=== PATIENT | female | born 1970 | race Two or more races ===

== ENCOUNTER → 2017-05-04 | Outpatient (CLI) | payer OTHER | LOC: CIMAGING 08:04 | PROVIDERS: ATTEND Family Medicine | DX: Z12.31 Encounter for screening mammogram for malignant neoplasm of breast (principal) | CPT/HCPCS: G0202 ==

== ENCOUNTER 2018-02-18 15:51 | Emergency (ER) | payer OTHER ==
--- NOTE | 2018-02-18 16:08 | EDPHY ---
H & P Stated Complaint: LLQ pain for 3 days with nausea. Time Seen by Provider: 02/18/18 16:08 HPI/ROS: HPI CHIEF COMPLAINT: Abdominal pain HISTORY OF PRESENT ILLNESS: Patient is a 39-year-old female, history of diverticulitis with partial colectomy, presents emergency room with left lower quadrant abdominal pain. Associated nausea but no vomiting. Denies fever. States this been present for 3 days. She denies any chest pain or shortness of breath. Pain is located in her left lower quadrant has progressively gotten worse over the past 3 days. She did see her primary care doctor who did blood work and try to order it outpatient CT however patient states her insurance company would not pre authorized the outpatient CT so she was forced come the emergency room due to ongoing pain. States normal bowel movement earlier today. No diarrhea no black stool no blood in her stool. No vomiting blood. Past Medical History: Diverticulitis Past Surgical History: Partial colectomy Social History: Denies daily use drugs alcohol tobacco. Family History: Noncontributory ROS REVIEW OF SYSTEMS: A comprehensive 10 point review of systems is otherwise negative aside from elements mentioned in the history of present illness. Exam Constitutional appears well nontoxic triage nursing summary reviewed, vital signs reviewed, awake/alert. Eyes normal conjunctivae and sclera, EOMI, PERRLA. HENT normal inspection, atraumatic, moist mucus membranes, no epistaxis, neck supple/ no meningismus, no raccoon eyes. Respiratory clear to auscultation bilaterally, normal breath sounds, no respiratory distress, no wheezing. Cardiovascular rate normal, regular rhythm, no murmur, no edema, distal pulses normal. Gastrointestinal mild tender palpation left lower quadrant no rebound, no guarding, normal bowel sounds, no distension, no pulsatile mass. Genitourinary no CVA tenderness. Musculoskeletal no midline vertebral tenderness, full range of motion, no calf swelling, no tenderness of extremities, no meningismus, good pulses, neurovascularly intact. Skin pink, warm, & dry, no rash, skin atraumatic. Neurologic awake, alert and oriented x 3, AAOx3, moves all 4 extremities equally, motor intact, sensory intact, CN II-XII intact, normal cerebellar, normal vision, normal speech. Psychiatric normal mood/affect. Heme/Lymph/Immune no lymphadenopathy. Differential diagnosis includes but is not limited to and in no particular order : Bowel obstruction, appendicitis, gallbladder disease, diverticulitis, colitis , enteritis, perforated viscus, gastritis, GERD, esophagitis, urinary tract infection, pyelonephritis, kidney stones Medical Decision Making: Plan for this patient IV establishment blood draw, CT scan abdomen pelvis with IV contrast, re-evaluate. She has declined pain medicine here. Re-evaluation: CT scan abdomen pelvis with IV contrast called to me by Dr. Tay, shows most likely a left ovarian cyst with rupture, trace free fluid in the left lower pelvis. This most likely causing her pain. No evidence of diverticulitis or colitis. No free air. Additionally there is an incidental liver lesion that needs further follow-up in characterization. CT distally shows constipation. I discussed the patient's blood work and CT results with her. I discussed the her liver lesion needs follow-up with primary care doctor. She feels comfortable going home. Most likely cause of pain is ruptured ovarian cyst. I do recommend that she takes Mag citrate for constipation. Additionally should follow up with her primary care doctor over the next month for further evaluation of the liver cyst. She understands. Return precautions discussed she understands return emergency room if develops worsening abdominal pain fever vomiting. Source: Patient - Personal History LMP (Females 10-55): 15-21 Days Ago Current Tetanus Diphtheria and Acellular Pertussis (TDAP): Yes - Medical/Surgical History Hx Asthma: No Hx Chronic Respiratory Disease: No Hx Diabetes: No Hx Cardiac Disease: No Hx Renal Disease: No Hx Cirrhosis: No Hx Alcoholism: No Hx HIV/AIDS: No Hx Splenectomy or Spleen Trauma: No Other PMH: Diverticulitis. - Social History Smoking Status: Never smoked Constitutional: Initial Vital Signs Temperature (C) 36.6 C 02/18/18 15:54 Heart Rate 94 02/18/18 15:54 Respiratory Rate 16 02/18/18 15:54 Blood Pressure 123/82 H 02/18/18 15:54 O2 Sat (%) 96 02/18/18 15:54 O2 Delivery Mode Room Air Allergies/Adverse Reactions: amoxicillin Allergy (Verified 02/18/18 15:58) Sulfa (Sulfonamide Antibiotics) Allergy (Verified 02/18/18 15:58) Home Medications: Medication Instructions Recorded Magnesium Citrate [Magnesium 300 ml PO ONCE #1 bottle 02/18/18 Citrate 300 ml (*)] Protonix 02/18/18 Xanax 02/18/18 Zyrtec 02/18/18 Medical Decision Making - Data Points Laboratory Results: Laboratory Results 02/18/18 16:25 02/18/18 16:25 02/18/18 02/18/18 02/18/18 16:25 16:25 16:25 WBC 7.09 10^3/uL 10^3/uL (3.80-9.50) RBC 5.08 10^6/uL 10^6/uL (4.18-5.33) Hgb 14.5 g/dL g/dL (12.6-16.3) Hct 42.7 % % (38.0-47.0) MCV 84.1 fL fL (81.5-99.8) MCH 28.5 pg pg (27.9-34.1) MCHC 34.0 g/dL g/dL (32.4-36.7) RDW 13.1 % % (11.5-15.2) Plt Count 346 10^3/uL 10^3/uL (150-400) MPV 9.7 fL fL (8.7-11.7) Neut % (Auto) 50.2 % % (39.3-74.2) Lymph % (Auto) 33.3 % % (15.0-45.0) Coleman % (Auto) 12.6 % % (4.5-13.0) Eos % (Auto) 3.4 % % (0.6-7.6) Baso % (Auto) 0.4 % % (0.3-1.7) Nucleat RBC Rel Count 0.0 % % (0.0-0.2) Absolute Neuts (auto) 3.56 10^3/uL 10^3/uL (1.70-6.50) Absolute Lymphs (auto) 2.36 10^3/uL 10^3/uL (1.00-3.00) Absolute Monos (auto) 0.89 10^3/uL H 10^3/uL (0.30-0.80) Absolute Eos (auto) 0.24 10^3/uL 10^3/uL (0.03-0.40) Absolute Basos (auto) 0.03 10^3/uL 10^3/uL (0.02-0.10) Absolute Nucleated RBC 0.00 10^3/uL 10^3/uL (0-0.01) Immature Gran % 0.1 % % (0.0-1.1) Immature Gran # 0.01 10^3/uL 10^3/uL (0.00-0.10) VBG Lactic Acid Sodium 141 mEq/L mEq/L (135-145) Potassium 4.1 mEq/L mEq/L (3.5-5.2) Chloride 107 mEq/L mEq/L (97-110) Carbon Dioxide 22 mEq/l mEq/l (22-31) Anion Gap 12 mEq/L mEq/L (8-16) BUN 12 mg/dL mg/dL (7-23) Creatinine 0.8 mg/dL mg/dL (0.6-1.0) Estimated GFR > 60 Glucose 92 mg/dL mg/dL (70-100) Calcium 9.6 mg/dL mg/dL (8.5-10.4) Total Bilirubin 0.5 mg/dL mg/dL (0.1-1.4) Conjugated Bilirubin 0.3 mg/dL mg/dL (0.0-0.5) Unconjugated Bilirubin 0.2 mg/dL mg/dL (0.0-1.1) AST 23 IU/L IU/L (14-46) ALT 25 IU/L IU/L (9-52) Alkaline Phosphatase 62 IU/L IU/L (38-126) Total Protein 7.8 g/dL g/dL (6.3-8.2) Albumin 4.5 g/dL g/dL (3.5-5.0) Lipase 155 IU/L IU/L (23-300) Beta HCG, Qual NEGATIVE Urine Color Urine Appearance Urine pH Ur Specific [place] Urine Protein Urine Ketones Urine Blood Urine Nitrate Urine Bilirubin Urine Urobilinogen Ur Leukocyte Esterase Urine RBC Urine WBC Ur Epithelial Cells Urine Bacteria Urine Mucus Urine Glucose 02/18/18 02/18/18 16:25 16:00 WBC RBC Hgb Hct MCV MCH MCHC RDW Plt Count MPV Neut % (Auto) Lymph % (Auto) Coleman % (Auto) Eos % (Auto) Baso % (Auto) Nucleat RBC Rel Count Absolute Neuts (auto) Absolute Lymphs (auto) Absolute Monos (auto) Absolute Eos (auto) Absolute Basos (auto) Absolute Nucleated RBC Immature Gran % Immature Gran # VBG Lactic Acid 1.1 mmol/L mmol/L (0.7-2.1) Sodium Potassium Chloride Carbon Dioxide Anion Gap BUN Creatinine Estimated GFR Glucose Calcium Total Bilirubin Conjugated Bilirubin Unconjugated Bilirubin AST ALT Alkaline Phosphatase Total Protein Albumin Lipase Beta HCG, Qual Urine Color YELLOW Urine Appearance HAZY Urine pH 5.0 (5.0-7.5) Ur Specific [place] 1.017 (1.002-1.030) Urine Protein NEGATIVE (NEGATIVE) Urine Ketones NEGATIVE (NEGATIVE) Urine Blood 2+ H (NEGATIVE) Urine Nitrate NEGATIVE (NEGATIVE) Urine Bilirubin NEGATIVE (NEGATIVE) Urine Urobilinogen NEGATIVE EU EU (0.2-1.0) Ur Leukocyte Esterase NEGATIVE (NEGATIVE) Urine RBC 1-3 /hpf /hpf (0-3) Urine WBC 3-5 /hpf H /hpf (0-3) Ur Epithelial Cells TRACE /lpf /lpf (NONE-1+) Urine Bacteria 3+ /hpf H /hpf (NONE SEEN) Urine Mucus TRACE /lpf /lpf (NONE-1+) Urine Glucose NEGATIVE (NEGATIVE) Medications Given: Discontinued Medications Sodium Chloride (Ns) 1,000 mls @ 0 mls/hr IV EDNOW ONE; Wide Open PRN Reason: Protocol Stop: 02/18/18 16:11 Last Admin: 02/18/18 16:23 Dose: 1,000 mls Departure - Departure Disposition: Home, Routine, Self-Care Clinical Impression: Abdominal pain Qualifiers: Abdominal location: unspecified location Qualified Code(s): R10.9 - Unspecified abdominal pain Condition: Good Instructions: Acute Abdominal Pain (ED), Ovarian Cyst (ED) Additional Instructions: 1. Please follow up with her primary care doctor. 2. Your CT scan shows that you're constipated, left ovarian cyst, and incidental finding of a right liver cyst. 3. The lesion on her liver needs further evaluation. Please get with her primary care doctor about this. 4. Return emergency room if develops worsening abdominal pain fever vomiting. Referrals: Raymundo Muhammad DO [Primary Care Provider] - As per Instructions Prescriptions: Magnesium Citrate [Magnesium Citrate 300 ml (*)] 300 ml PO ONCE #1 bottle
[2018-02-18] MEDS ORDERED: NS 1,000 ML IV ONE (16:10)
[2018-02-18 16:36] LABS: PLATELET COUNT 346 10^3/uL (150-400)
[2018-02-18] MEDS ORDERED: IOPAMIDOL (ISOVUE-300) 100 ML BTL ONE (17:29)
[2018-02-18 18:57] VITALS: BP 145/80
== END 2018-02-18 18:56 | disposition home or self-care (01) ==
DX: R10.32 Left lower quadrant pain (principal); E86.9 Volume depletion, unspecified
CPT/HCPCS: Q9967

== ENCOUNTER → 2018-04-16 | Outpatient (CLI) | payer OTHER ==
[~2018-04-16] MED LIST: GADOBUTROL 10 ML VIAL IVP ONE
== END ==
LOC: FIMAGING 06:28
PROVIDERS: ATTEND Family Medicine
DX: D18.03 Hemangioma of intra-abdominal structures (principal); Z90.49 Acquired absence of other specified parts of digestive tract
CPT/HCPCS: A9585

== ENCOUNTER → 2018-10-01 | Outpatient (CLI) | payer OTHER | LOC: CIMAGING 07:55 | PROVIDERS: ATTEND Family Medicine | DX: R10.32 Left lower quadrant pain (principal) | CPT/HCPCS: 76770-PO ==